=== PATIENT | male | born 1960 | race Caucasian/White ===

== ENCOUNTER 2024-06-08 22:10 | Emergency (ER) | payer SELFPAY ==
--- NOTE | ~2024-06-08 | XR_ITS ---
EXAMINATION: XR knee LT 3V DATE: 06/08/2024 23:44 INDICATION: Left knee pain. Fall. TECHNIQUE: 3 views of left knee were obtained. COMPARISON: None. FINDINGS: Bone alignment is normal. No fracture. There is mild osteoarthritis of medial and patellofe moral compartments and moderate osteoarthritis of lateral compartment. There is chondrocalcinosis of the menisci. There is a moderate-sized knee joint effusion. There is superficial infrapatellar bursit is. IMPRESSION: 1. Moderate left knee osteoarthritis. 2. Moderate-sized knee joint effusion. Reviewed, dictated and finalized at location E.
--- NOTE | ~2024-06-08 | CT_ITS ---
EXAMINATION: CT brain wo con DATE: 06/08/2024 23:27 INDICATION: Head injury. Fall. TECHNIQUE: Computed tomography (CT) of the head was performed without intravenous contrast. The mA wa s adjusted according to patient size. Iterative reconstruction technique was employed. The dose-lengt h product was 605.33 mGy-cm. COMPARISON: None FINDINGS: There are scattered areas of low attenuation in the cerebral white matter, which is within normal limits for the patient's age. There is no intracranial hemorrhage, acute infarction, or abnorm al intracranial mass lesion. The ventricles are normal in size. There is mild mucosal thickening in t he paranasal sinuses. The mastoid air cells are normal. The orbits are normal. IMPRESSION: 1. Normal aging brain. Reviewed, dictated and finalized at location E. IMPRESSION: 1. Normal aging brain.
--- NOTE | ~2024-06-08 | XR_ITS ---
EXAMINATION: XR knee RT 3V DATE: 06/08/2024 23:45 INDICATION: Right knee pain. Fall. TECHNIQUE: 3 views of right knee were obtained. COMPARISON: None. FINDINGS: Bone alignment is normal. No fracture. There is mild osteoarthritis of medial and patellofe moral compartments and moderate osteoarthritis of lateral compartment. There is chondrocalcinosis of the menisci. There is a small knee joint effusion. There is superficial infrapatellar bursitis. IMPRESSION: 1. Moderate right knee osteoarthritis. 2. Small right knee joint effusion. Reviewed, dictated and finalized at location E.
--- NOTE | ~2024-06-08 | CT_ITS ---
EXAMINATION: CT cervical spine wo con DATE: 06/08/2024 23:28 INDICATION: Neck injury. Fall. TECHNIQUE: Computed tomography (CT) of the cervical spine was performed without intravenous contrast. Automated exposure control and iterative reconstruction technique were employed. The dose-length pro duct was 434.65 mGy-cm. COMPARISON: None FINDINGS: There is a 2.9 x 2.0 cm right high internal jugular chain lymph node. There is 5 degrees de xtrocurvature of thoracic spine. There is 2 mm anterolisthesis of C3 on C4. There is mild chronic ant erior wedging of T1 and T2 vertebral bodies. There is mildly decreased disc height at C3-C4 and C5-C6 and moderately decreased disc height at C6-C7 and C7-T1. The following disc levels are specifically discussed: C2-C3: There is mild bilateral uncovertebral joint osteoarthritis. There is moderate right and severe left facet joint osteoarthritis. There is mild left neural foraminal stenosis. There is no central c anal stenosis. C3-C4: There is severe right and mild left uncovertebral joint osteoarthritis. There is severe bilate ral facet joint osteoarthritis. There is moderate right and mild left neural foraminal stenosis. Ther e is mild central canal stenosis. C4-C5: There is moderate bilateral uncovertebral joint osteoarthritis. There is severe bilateral face t joint osteoarthritis. There is mild bilateral neural foraminal stenosis. There is mild central manny l stenosis. C5-C6: There is mild bilateral uncovertebral joint osteoarthritis. There is moderate bilateral facet joint osteoarthritis. There is mild bilateral neural foraminal stenosis. There is mild central canal stenosis. C6-C7: There is severe right and moderate left uncovertebral joint osteoarthritis. There is severe ri ght and moderate left facet joint osteoarthritis. There is mild bilateral neural foraminal stenosis. There is mild central canal stenosis. C7-T1: There is severe bilateral uncovertebral joint osteoarthritis. There is moderate bilateral face t joint osteoarthritis. There is moderate bilateral neural foraminal stenosis. There is no central ca nal stenosis. IMPRESSION: 1. No fracture. 2. Moderate cervical spondylosis. Reviewed, dictated and finalized at location E.
[2024-06-08 22:10] VITALS: BP 133/94; PULSE 91; RESP 20; TEMP 36.2; O2SAT 97
--- NOTE | 2024-06-08 22:29 | PC.NURSE ---
[facility] called. reports that patient has been missing since 1999 today. When patient is to be discharged, they request that we call them at [phone] for transportation home
--- NOTE | 2024-06-08 22:35 | PC.NURSE ---
Pt stumbling out of bed and wantin to use bathroom. Pt guided back to room to use urinal. He is alert but has slurred speech, pt given urinal and he urinated all over floor.
--- NOTE | 2024-06-08 22:41 | ED.ALCOHOL ---
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 He notes that he has stayed at the same custodial for the last 13 + months. He has been dealing with knee pain since that time and has not been able to get any knee steroid injections. Tonight he had a few beers and when he was attempting to walk home from the custodial his knees gave out and he fell to the ground skinning his knees. He does not believe he hit his head or lost consciousness. He is hard of hearing and does not have batteries for his hearing aids, he is difficult to get a full history from regarding his last tetanus shot. Currently complaining of chronic knee pain. Related Data Home Medications Medication Instructions Recorded Confirmed acetaminophen 500 mg tablet 500 mg PO PRN PRN Pain 06/08/24 06/08/24 Allergies Allergy/AdvReac Type Severity Reaction Status Date / Time No Known Allergies Allergy Verified 06/08/24 23:10 Review of Systems Review of Systems: All systems reviewed & are unremarkable except as noted in HPI and below Exam Narrative: GENERAL: Well-appearing, well-nourished, and in no acute distress. HEAD: Normocephalic, atraumatic. EYES: PERRLA and EOMI. ENT: Nares clear. Mucous membranes moist. Small abrasion present over bridge of nares without deformity or active bleeding. NECK: Supple. No C-spine tenderness. CHEST: Clear to auscultation. No respiratory distress. No chest wall tenderness. HEART: Regular rate and rhythm. Normal peripheral pulses. ABDOMEN: Soft, nontender, nondistended. EXTREMITIES: Normal range of motion. No edema. Abrasions present to bilateral anterior knees without deformity, effusion or decreased ROM. Able to ambulate on bilateral lower extremities. SKIN: Warm, dry NEURO: No focal deficits. Alert and oriented x3. Slurred speech. Course Course Emergency Course: Chart review performed. Patient here after being found drunk in a parking lot. Triage vitals grossly normal. Patient seen and evaluated, non toxic appearing, alert oriented but with a limited history due to hearing difficulties and intoxication. Will do CT brain, cervical spine, XR of bilateral knees, update tetanus and give tylenol for pain. Patient agreeable. Imaging negative. Contacted patient's custodial, requesting he be watched in the ER for longer until he is more sober to go back, then they will pick him up. He does leave and drink many days for them. Will monitor here in the department. Patient slept in the department, awake, clinically sober for ride home. Picked up by his custodial staff. Advised close follow up with PCP and refraining from alcohol use. Vital Signs Vital signs: Vital Signs Temperature 97.2 F L 06/08/24 22:10 Pulse Rate 91 06/08/24 22:10 Respiratory Rate 20 06/08/24 22:10 Blood Pressure 133/94 H 06/08/24 22:10 Pulse Oximetry 97 06/08/24 22:10 Oxygen Delivery Room Air 06/08/24 22:10 Temperature 97.2 F L 06/08/24 22:10 Pulse Rate 91 06/08/24 22:10 Respiratory Rate 20 06/08/24 22:10 Blood Pressure 133/94 H 06/08/24 22:10 Pulse Oximetry 97 06/08/24 22:10 Oxygen Delivery Room Air 06/08/24 22:10 Discharge Plan Discharge Clinical Impression: Alcoholic intoxication Qualifiers: Complication of substance-induced condition: uncomplicated Qualified Code(s): F10.920 - Alcohol use, unspecified with intoxication, uncomplicated Patient Disposition: Home, Self-Care Condition: Stable Instructions: Antibiotic Form, Alcohol Intoxication (ED) Additional Instructions: Refrain from alcohol use. Follow with your doctor. Return to the ER if you develop new symtoms. Prescriptions: No Action acetaminophen 500 mg tablet 500 mg PO PRN PRN (Reason: Pain) Follow-up/Referrals: Leon
[2024-06-08] MEDS: ACETAMINOPHEN 500 MG TABLET 1000 MG PO (23:25)
[2024-06-08] MEDS: TETANUS,DIPHTHERIA,AC PERTUSSIS ADULT 0.5 ML (ADACEL) IM (23:28)
--- NOTE | 2024-06-09 00:11 | PC.NURSE ---
Pt CT and xrays cleared, call placed to [facility] care and spoke w/ RA attending. They report not wanting to take pt back until morning or until he is more sober. Pt informed of POC, he is very [place] and unable to hear w/o hearing aids. At this time his hearing aids need recharged and have been removed. Pt moved to 1 to better observe by nurse station. Pt given remoter to TV and drinks. Pt informed he will be observed here until morning when someone from long-term care can come to pick him up.
[2024-06-09 00:14] VITALS: BP 130/62; PULSE 78; RESP 20; O2SAT 95
--- NOTE | 2024-06-09 02:09 | PC.NURSE ---
Pt sleeping, no distress noted, call davila at pt side.
[2024-06-09 02:16] VITALS: BP 120/71; PULSE 70; RESP 18; O2SAT 96
--- NOTE | 2024-06-09 04:31 | PC.NURSE ---
Pt sleeping, no distress, RR even and nonlabored. POC to d/c home this am after pt is more sober. He is alert to verbal, denies any complaints.
[2024-06-09 05:23] VITALS: BP 130/78; PULSE 78; RESP 18; O2SAT 98
--- NOTE | 2024-06-09 05:23 | PC.NURSE ---
Pt awake and alert, ambulated to Bathroom steadily. 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 VSS.
[2024-06-09 05:55] VITALS: BP 130/68; PULSE 75; RESP 18; TEMP 36.6; O2SAT 97
== END 2024-06-09 05:55 | disposition home or self-care (01) ==
PROVIDERS: Emergency Provider Student in an Organized Health Care Education/Training Program; PCP Physician Assistant
DX: F10.920 Alcohol use, unspecified with intoxication, uncomplicated (principal); M25.562 Pain in left knee; M25.561 Pain in right knee; Z23 Encounter for immunization; W19.XXXA Unspecified fall, initial encounter
CPT/HCPCS: 70450; 72125; 73562; 90471; 90715; 99284